=== PATIENT | female | born 1940 | race Caucasian/White ===

== ENCOUNTER 2018-03-15 07:50 | Emergency (ER) | payer BC, MEDICAID ==
[~2018-03-15] VITALS: Ht 152.4 cm; Wt 54.9 kg
[2018-03-15 07:54] VITALS: Ht 152.4 cm; Wt 54.9 kg
[2018-03-15 09:02] LABS: BASOPHIL % 0.1 % (0-2); PLATELET COUNT 261 x10^3mcL (130-400)
[2018-03-15 09:10] LABS: CALCIUM 9.2 mg/dL (8.5-10.1); CARBON DIOXIDE 27.2 mmol/L (21-32); CHLORIDE SERUM 104 mmol/L (98-107); CREATININE SERUM 0.9 mg/dL (0.6-1.0); GLUCOSE SERUM 127 mg/dL (74-106); POTASSIUM SERUM 4.3 mmol/L (3.5-5.1); SODIUM SERUM 139 mmol/L (136-145)
[2018-03-15 09:14] LABS: ALBUMIN 3.6 g/dL (3.4-5.0); ALKALINE PHOSPHATASE 94 U/L (46-116); ALT/SGPT 32 U/L (14-59); AMYLASE 92 U/L (25-115); AST/SGOT 26 U/L (15-37); BILIRUBIN TOTAL 0.8 mg/dL (0.20-1.00); CHOLESTEROL 163 mg/dL (<200); HDL CHOLESTEROL 60 mg/dL (40-60); LIPASE 200 IU/L (73-393); TOTAL PROTEIN, SERUM 7.5 g/dL (6.4-8.2)
[2018-03-15 09:46] LABS: microscopic required? YES; urine erythrocyte 1+ (NEGATIVE)
[2018-03-15 09:54] LABS: AMPHETAMINE QUAL UR NONE DETECTED (See below)
[2018-03-15 11:57] VITALS: BP 136/66
== END 2018-03-15 12:57 | disposition home or self-care (01) ==
LOC: ED 07:50
PROVIDERS: Emergency Medicine
DX: R10.13 Epigastric pain (principal); R11.2 Nausea with vomiting, unspecified; I10 Essential (primary) hypertension; Z90.710 Acquired absence of both cervix and uterus; Z88.0 Allergy status to penicillin
CPT/HCPCS: 83880; J1885; J7030; Q0092; Q9967

== ENCOUNTER 2019-12-03 17:34 | Emergency (ER) | payer BC, MEDICAID ==
[~2019-12-03] VITALS: Ht 147.3 cm; Wt 57.6 kg
[2019-12-03 17:41] VITALS: Ht 147.3 cm; Wt 57.6 kg
[2019-12-03 18:10] LABS: PLATELET COUNT 249 x10^3mcL (130-400)
[2019-12-03 18:11] LABS: BASOPHIL % 0 % (0-2); RED CELL DISTRIBUTION WIDTH 14.8 % (11.5-14.5)
[2019-12-03 18:16] LABS: CARBON DIOXIDE 28.5 mmol/L (21-32); CHLORIDE SERUM 103 mmol/L (98-107); CREATININE SERUM 1.1 mg/dL (0.6-1.0); GLUCOSE SERUM 226 mg/dL (74-106); POTASSIUM SERUM 3.8 mmol/L (3.5-5.1); SODIUM SERUM 139 mmol/L (136-145)
[2019-12-03 18:22] LABS: ALBUMIN 3.4 g/dL (3.4-5.0); ALKALINE PHOSPHATASE 83 U/L (46-116); ALT/SGPT 46 U/L (14-59); AST/SGOT 42 U/L (15-37); BILIRUBIN TOTAL 0.72 mg/dL (0.20-1.00); TOTAL PROTEIN, SERUM 7.4 g/dL (6.4-8.2)
[2019-12-03 19:34] VITALS: BP 137/54
== END 2019-12-03 19:34 | disposition home or self-care (01) ==
LOC: ED 17:34
PROVIDERS: Emergency Medicine
DX: S00.03XA Contusion of scalp, initial encounter (principal); I10 Essential (primary) hypertension; R07.89 Other chest pain; R00.2 Palpitations; E11.65 Type 2 diabetes mellitus with hyperglycemia; Z90.710 Acquired absence of both cervix and uterus; Z85.43 Personal history of malignant neoplasm of ovary; Z88.0 Allergy status to penicillin; W01.0XXA Fall on same level from slipping, tripping and stumbling without subsequent striking against object, initial encounter; Y93.01 Activity, walking, marching and hiking; Y92.488 Other paved roadways as the place of occurrence of the external cause; Y99.8 Other external cause status
CPT/HCPCS: 36415